=== PATIENT | male | born 1975 | race Caucasian/White ===

== ENCOUNTER 2022-09-27 05:35 | Outpatient (CLI) | payer OTHER ==
[~2022-09-27] VITALS: Ht 177.8 cm; Wt 63.5 kg
== END 2022-09-27 10:29 | disposition home or self-care (01) ==
LOC: PREOP 05:35
PROVIDERS: ATTEND Surgery
DX: Z01.818 Encounter for other preprocedural examination (principal)

== ENCOUNTER 2022-09-29 08:40 | Day surgery (SDC) | payer OTHER ==
[~2022-09-29] VITALS: Ht 177.8 cm; Wt 63.5 kg
[2022-09-29] VITALS (10 sets, daily range): BP systolic 124–152; BP diastolic 74–90
[2022-09-29] MEDS ORDERED: ceFAZolin INJECTION 2,000 MG in NS (IVPB) 50 ML IV ONE (09:30)
--- NOTE | 2022-09-29 10:18 | Progress Note-Pre Operative ---
Pre-Operative Progress Note Date of Available H&P: Sep 23, 2022 Date H&P Reviewed: Sep 29, 2022 Time H&P Reviewed: 10:16 History & Physical: H&P Reviewed, Patient Examed, No changes noted Pre-Operative Diagnosis: Incarcerated Right inguinal hernia, Inc umb hernia, possible TIMMYH ANTONIO MYLES DO Sep 29, 2022 10:18
[2022-09-29] MEDS ORDERED: BUP/EPI 0.5% 1:200,000 (SENSORCAINE) 30 ML VIAL ONE (10:40)
[2022-09-29] MEDS ORDERED: proPOfol 200 MG/20 ML (DIPRIVAN) VIAL IV ONE (11:10)
[2022-09-29] MEDS ORDERED: ONDANSETRON 4 MG/2 ML (SDV) Z0FRAN ONE (11:10)
[2022-09-29] MEDS ORDERED: MIDAZOLAM 2 MG/2 ML (VERSED) VIAL ONE (11:10)
[2022-09-29] MEDS ORDERED: fentaNYL INJ 100 MCG/2 ML AMP ONE (11:10)
[2022-09-29] MEDS ORDERED: ROCURONIUM 50 MG/5 ML (ZEMURON) VIAL IV ONE ×2 (11:10→13:03)
[2022-09-29] MEDS ORDERED: LIDOCAINE PF 2% 5 ML (XYLOCAINE) VIAL ONE (11:10)
[2022-09-29] MEDS: LACTATED RINGERS 1,000 ML IV PRN ×2 (11:16→12:31)
--- NOTE | 2022-09-29 13:18 | Progress Note-Post Operative ---
Post-Operative Progess Note Surgeon (s)/Proofsheet Corrector (s) Surgeon ANTONIO MYLES DO Proofsheet Corrector: Melodie Pre-Operative Diagnosis Incarcerated Right inguinal hernia, Inc umb hernia, possible [facility] Post-Operative Diagnosis Incarcerated right inguinal hernia Incarcerated umbilical hernia Cord lipoma beginning of a [facility] Procedure & Operative Findings Date of Procedure 09/29/22 Procedure Performed/Findings Robotic Laparoscopic Right Inguinal herniarraphy with mesh placement Excision of right cord lipoma Open Umbilical herniarraphy PROCEDURE NOTE: After informed consent was obtained, the patient was brought to the operating room and placed on the operating table in a supine position. He was sterilely prepped and draped in a normal fashion. Local lidocaine was used to infiltrate the skin just above the umbilicus. I made an incision with #11 blade in a curvilinear fashion and carried it down to the skin into subcutaneous tissue and then deepened down the subcutaneoustissue with Bovie electrocautery down to the fascia. Encountered fat coming through the umbilical hernia defect and removed it. Fascia was inci sed with Bovie electrocautery and bluntly entered the abdomen, swept a finger around and placed limited trocar port under direct visualization. Created pneumoperitoneum, able to visualize the hernia on the right and took a picture of this and then placed two 8 mm Robotic ports about 10 cm on either side of the midline port using a local lidocaine, 11 blade for stab incision and then advanced the robotic port under direct visualization. Once this was in, I then placed the patient in steep Trendelenburg and then placed the working instruments, the fenestrated bipolar and the scissors. Looked on the left side and saw early signs of inguinal hernia, but nothing that needed to be repaired at this time. I could see a direct hernia defect on the right side. Next, I came across the peritoneum approximately 8 cm away from the hernia defect, going across laterally starting lateral about 17cm and cutting toward the median umbilical ligament. I then carefully dissected the visceral peritoneum away and down and then in the midline, went through the parietal side and dissected down to the pubic tubercle, dissecting this down carefully pushing the peritoneum away, I was able to then visualize the pubic tubercle and Wolf's ligament. I went 2 cm posterior and at this point, we then had a critical view of the dissection, able to dissect 2 cm across the midline to the right side, 2 cm posterior to the Wolf's ligament, able to then parietalize the vas deferens and spermatic vessels right at the groove between Wolf's and iliac vein and able to dissect, make sure there was no peritoneum between those two, able to see the indirect hernia space, took a picture of this, looked at the femoral space (no hernia seen). Then I carefully teased out the hernia sac and could visualize the indirect hernia space. Next I looked on the cord and cord structures. There was a large cord lipoma that I was able to reduce and cut off. This was then removed through the port to get it out of the peritoneal space. I could clearly see the inguinal canal and the indirect space. Next I carried the posterior lateral dissection all the way out and then placed a 12 x 17 Midwieght Bard 3DMax mesh. It laid in nicely, covered the hernia defect and the rest of the area. It was above the peritoneum, sutured it at the pubic tubercle with a 3-0 Vicryl suture and tied this off. I then sutured another 3-0 Vicryl out laterally and this appeared to lay in very nicely. I then brought down the pneumoperitoneum to about 8 mmHg and then started closing the peritoneum. Started laterally and used a 2-0 V-lock barbed suture to start a running stitch to close the peritoneum. This was closed nicely, took a picture of the closure at this point, then removed both needles had switched to a suture courtesy bus driver from the scissors. The patient was then placed back supine, removed all ports under direct visualization, allowed pneumoperitoneum to escape. I then closed the umbilical hernia defect, closing the fascia with 0 PDS suture placed in a [id number] fashion. Copiously irrigated all incisions and then closed the two small 8 mm incisions with two interrupted 4-0 undyed Monocryl subcuticular stitches and closed the supraumbilical incision with three interrupted undyed Monocryl subcuticular stitch. Area was cleaned and dried. Dermabond was placed. The patient tolerated the procedure. The sponge, instrument and needle counts were correct at the end of the case. Dr. Sewell assisted during this surgery by making incisions, closing incisions, helping to identify anatomy and passing/retrieving suture and needles. Anesthesia Type GET Estimated Blood Loss Estimated blood loss (mL): less than 10 ml Specimens/Packing Specimens Removed umilical hernia contents cord lipoma ANTONIO MYLES DO Sep 29, 2022 13:17
[2022-09-29] MEDS ORDERED: ACHD5005 PO (13:19)
--- NOTE | 2022-09-29 13:21 | Discharge Inst-Surgical ---
Discharge Inst-Surgical Depart Medication/Instructions New, Converted or Re-Newed RX: Transmitted to Pharmacy Patient Instructions Follow up Appt: Make appointment for 1 week. [phone] Instructions: No lifting greater than 20 pounds. No strenuous activity. May shower in 24 hours, no tub bath or soaking. Use incentive spirometer at home as directed. No Smoking Skin/Wound Care: May remove bandages in am. You need to leave the Dermabond on incision it will fall off on it's own. Symptoms to Report: Appetite Changes, Extremity Discoloration, Numbness/Tingling, Swelling Increased, Bleeding Excessive, Eyesight Changes, Pain Increased, Urine Color Change, Constipation(Persistent), Fever over 101 degree F, Pain/Pressure in chest, Urinating Difficulty, Cough Up/Vomit Blood, Heart Beat Irreg/Pounding, Pain/Pressure in jaw, Cramps in feet or legs, Lightheadedness, Pain/Pressure in shoulder, Diarrhea(Persistent), Memory Changes Suddenly, Questions/Concerns, Weight gain consecutive days, Dizziness/Fainting, Nausea/Vomiting, Shortness of Breath, Weight gain over 2 pounds If questions or concerns contact your physician Or seek help at emergency department. Activity Activity as Tolerated: Yes Activity Instructions: Avoid Stress to Incision Driving Instructions: No Driving/Refer to Dr. Kohli Discharge Diet: No Restrictions Diet After 24 Hours: Clear Liquid if Nauseous If Any Problems/Questions/Issu: Contact Your Physician, Go to Emergency Room Skin/Wound Care Infection Signs and Symptoms: Increased Redness, Foul Odor of Wound, Increased Drainage, Skin Itchy or Has a Rash, Increased Swelling, Temperature Above 101 F Wound Care Comment: HEATING pad to shoulder or neck tonight for pain Bathing Instructions: Shower Stitches/[place]/Dermabond Dis: Dermabond Ice Pack: Ice On and Off Site ANTONIO MYLES DO Sep 29, 2022 13:20
[2022-09-29] MEDS ORDERED: ONDANSETRON 4 MG/2 ML (SDV) Z0FRAN IVP PRN (13:30)
[2022-09-29] MEDS ORDERED: morphine INJ 10 MG/ML 1ML (SYR OR VIAL) IVP ONE (13:30)
[2022-09-29] MEDS ORDERED: MEPERIDINE (DEMEROL) INJ 50 MG/ML IVP ONE (13:30)
--- NOTE | 2022-09-29 13:30 | Anesthesia-General Post-Op ---
General Patient Condition Mental Status/LOC: Same as Preop Cardiovascular: Satisfactory Nausea/Vomiting: Absent Respiratory: Satisfactory Pain: Controlled Complications: Absent Post Op Complications Complications None Follow Up Care/Instructions Patient Instructions None needed. Anesthesia/Patient Condition Patient Condition Patient is doing well, no complaints, stable vital signs, no apparent adverse anesthesia problems. No complications reported per nursing. LAURA LARA CRNA Sep 29, 2022 13:30
[2022-09-29] MEDS ORDERED: HYDROcodone/APAP 5 MG/325 MG (LORTAB) TAB ONE (14:43)
[2022-09-29] MEDS ORDERED: HYDROcodone/APAP 5 MG/325 MG (LORTAB) TAB PO ONE (14:45)
== END 2022-09-29 15:35 | disposition home or self-care (01) ==
LOC: SDC 08:40
PROVIDERS: ATTEND Surgery
DX: K40.30 Unilateral inguinal hernia, with obstruction, without gangrene, not specified as recurrent (principal); K42.0 Umbilical hernia with obstruction, without gangrene; D17.6 Benign lipomatous neoplasm of spermatic cord; K40.90 Unilateral inguinal hernia, without obstruction or gangrene, not specified as recurrent; F17.210 Nicotine dependence, cigarettes, uncomplicated; Z28.310 Unvaccinated for COVID-19
CPT/HCPCS: 49592; 49650; 87081; 94664; C1781